=== PATIENT | male | born 1990 | race Caucasian/White ===

== ENCOUNTER → 2018-09-18 | Outpatient (CLI) | payer OTHER ==
--- NOTE | 2018-09-18 19:15 | MR ---
EXAMINATION TYPE: MR shoulder RT wo con DATE OF EXAM: 09/18/2018 COMPARISON: None HISTORY: Pain right shoulder, stiffness CONTRAST: Performed utilizing 0 mL intravenous Gadavist gadolinium contrast. Multiplanar, multiecho imaging on a 3.0 Deana magnet is performed through the shoulder. Long head of the biceps tendon is within the bicipital groove. No significant joint effusion is evide nt. Limited evaluation of the glenoid labrum. Some increased signal appears to be within the superior gle noid labrum compatible some internal derangement or some degenerative change. Communication with the articular surface is not clearly identified. This best visualized in the sagittal plane images. Ther e appear to be two small fluid-filled cysts posterior to the mid glenoid labrum. Rotator cuff tendons are evaluated. No tendon or muscle retraction is evident. No perforation is iden tified. The acromioclavicular junction is hypertrophied which can contribute to impingement syndrome. IMPRESSIONS: 1. Suspected glenoid labral degenerative changes or tear. Synovial cyst may be adjacent to the sound system installer ior glenoid 2. Rotator cuff appears intact. 3. Acromioclavicular joint hypertrophy with inferior spurring can contribute to impingement syndrome.
== END | disposition home or self-care (01) ==
LOC: RADMRIMAIN 17:09
PROVIDERS: ATTEND Orthopaedic Surgery
DX: M71.311 Other bursal cyst, right shoulder (principal); M25.811 Other specified joint disorders, right shoulder

== ENCOUNTER → 2021-11-12 | Outpatient (CLI) | payer OTHER ==
--- NOTE | 2021-11-13 05:02 | MR ---
EXAMINATION TYPE: MR shoulder RT wo con DATE OF EXAM: 11/12/2021 COMPARISON: 09/18/2018 HISTORY: Possible Rotator Cuff Tear in Right Shoulder Multiplanar multiecho imaging of the right shoulder with no contrast. The biceps tendon is intact. There is minor spurring at the AC joint. There is fluid along the supras pinatus and infraspinatus muscle bundles. There is no evidence of full thickness tear of the supraspi natus tendon. The glenohumeral joint is intact. The subscapularis tendon is intact. There is some thickening of the anterior glenoid labrum. No fract ure seen. IMPRESSION: There is some thickening of the anterior glenoid labrum consistent with a tear and scar tissue which is slightly increased compared to old exam. No evidence of any full thickness rotator cuff tear. Ther e are sharply marginated fluid collections adjacent to the scapular spine and adjacent to the suprasp inatus and infraspinatus muscle that are probably synovial cysts and essentially new compared to the old exam.
== END | disposition home or self-care (01) ==
LOC: RADMRIMAIN 19:49
PROVIDERS: ATTEND Orthopaedic Surgery
DX: M75.111 Incomplete rotator cuff tear or rupture of right shoulder, not specified as traumatic (principal)

== ENCOUNTER → 2021-11-19 | Outpatient (CLI) | payer OTHER ==
[2021-11-19 14:37] LABS: Basophils # (A) 0.04 X 10*3/uL (0.00-0.10); Basophils % (A) 0.5 %; Eosinophils # (A) 0.13 X 10*3/uL (0.04-0.35); Eosinophils % (A) 1.6 %; HCT 42.5 % (39.6-50.0); HGB 13.8 g/dL (13.0-17.0); Immature Grans, Automated 0.5 %; Lymphocytes # (A) 2.06 X 10*3/uL (0.90-5.00); Lymphocytes % (A) 25.7 %; MCH 30.5 pg (27.0-32.0); MCHC 32.5 g/dL (32.0-37.0); Monocytes # (A) 0.82 X 10*3/uL (0.20-1.00); Monocytes % (A) 10.2 %; NRBC Per 100 WBC 0 /100 WBCS (0.0-0.0); Neutrophils # (A) 4.92 X 10*3/uL (1.80-7.70); Neutrophils % (A) 61.5 %; Platelet Count 365 X 10*3/uL (140-440); RBC 4.52 X 10*6/uL (4.40-5.60); RDW 12.8 % (11.5-14.5); WBC 8.01 X 10*3/uL (4.50-10.00)
[2021-11-19 14:48] LABS: Anion Gap 8.1 mmol/L (10.00-18.00); Carbon Dioxide 26.5 mmol/L (20.0-27.5); Potassium 4.6 mmol/L (3.5-5.5)
== END | disposition home or self-care (01) ==
LOC: LABPAT 10:05
PROVIDERS: ATTEND Orthopaedic Surgery
DX: Z01.812 Encounter for preprocedural laboratory examination (principal)
CPT/HCPCS: 36415; 80051; 85025

== ENCOUNTER 2021-11-30 09:10 | Day surgery (SDC) | payer OTHER ==
[2021-11-27 16:05] VITALS: BMI 29.7
--- NOTE | 2021-11-30 08:19 | HP ---
HISTORY AND PHYSICAL CHIEF COMPLAINT: Right shoulder pain. 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 He is having with overhead use and at night. He notes he does do a lot a heavy lifting at work. He has tried medications along with injections and home exercise program without much relief. He notes daily symptoms. PAST MEDICAL HISTORY: Negative. PAST SURGICAL HISTORY: Negative. CURRENT MEDICATIONS: Ibuprofen. ALLERGIES: He denies drug allergies. FAMILY HISTORY: Negative. SOCIAL HISTORY: Significant for tobacco use along with social alcohol use. REVIEW OF SYSTEMS: A 16-point review of systems otherwise reviewed and is noncontributory. PHYSICAL EXAMINATION: VITAL SIGNS: On examination, the patient is approximately 5 feet 7, 180 pounds of mesomorphic habitus. HEENT: Nonfocal. NECK: Supple. MUSCULOSKELETAL: On examination of his right shoulder, he is tender about the anterior subacromial space. He has moderate crepitus. Active range of motion forward elevation 135 degrees, external rotation with arm at side 45 degrees, internal rotation to L4. Motor strength 4+/5 for external rotation with the arm at the side, 5-/5 for abduction. Impingement test, Neer test are positive. His distal neurovascular exam appears intact in the right upper extremity. IMAGING: MRI report, right shoulder, 11/12/2021, shows evidence of synovial cyst adjacent to the scapular spine. The rotator cuff appears to be intact. 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 RECOMMENDATIONS: I talked to the patient at length regarding his condition along with treatment options. At this point, he is quite symptomatic despite conservative measures. After thorough discussion, he opts to proceed with surgery. We will plan to proceed with arthroscopic evaluation of the right shoulder with probable subacromial decompression along with possible posterior labral debridement. We will likely perform that as an outpatient procedure. Risks and benefits were discussed at length in layman's terms. MMODL / IJN: [id number] /
[~2021-11-30 09:10] MED LIST: DEXAMETHASONE SOD PHOSPHATE 4 MG/ML 1 ML VIAL IV ONE; HYDROmorphone 0.5 MG/0.5 ML SYRINGE IVP PRN; LACTATED RINGERS 1,000 ML IV SCH; MIDAZOLAM 2 MG/2 ML VIAL IV PRN; ONDANSETRON 4 MG/2 ML VIAL IVP ONE; SCOPOLAMINE 1 MG/72 HR PATCH TRANSDERM ONE
[2021-11-30] MEDS ORDERED: MIDAZOLAM 2 MG/2 ML VIAL IVP ONE (11:09)
[2021-11-30] MEDS ORDERED: fentaNYL (PF) 50 MCG/ML 2 ML AMP IVP ONE (11:09)
[2021-11-30] MEDS ORDERED: PROPOFOL 10 MG/ML 20 ML VIAL IV ONE (11:52)
[2021-11-30] MEDS ORDERED: LIDOCAINE 2% INJ 20 MG/ML (2 ML VIAL) ONE (11:52)
[2021-11-30] MEDS ORDERED: MIDAZOLAM 2 MG/2 ML VIAL ONE (11:52)
[2021-11-30] MEDS ORDERED: SUCCINYLCHOLINE CHLORIDE 200 MG/10 ML VIAL IV ONE (11:52)
[2021-11-30] MEDS ORDERED: fentaNYL (PF) 50 MCG/ML 2 ML AMP ONE (11:52)
[2021-11-30] MEDS ORDERED: KETOROLAC 15 MG/ML 1 ML VIAL ONE (11:52)
[2021-11-30] MEDS ORDERED: GLYCOPYRROLATE 0.2 MG/ML 2 ML VIAL ONE (11:52)
[2021-11-30] MEDS ORDERED: ROPIVACAINE 5 MG/ML 30 ML VIAL ONE (11:52)
[2021-11-30] MEDS ORDERED: EPINEPHrine (PF) 1 ML in SODIUM CHLORIDE 0.9% IRRIGATIO 3,000 ML IRRIGATION ONE ×8 (11:57)
--- NOTE | 2021-11-30 12:19 | P.ANPRN ---
Procedure Note - Anesthesia - Nerve Block Performed Right Interscalene Single Time Out Performed: Yes (1108) Date of Procedure: 11/30/21 Procedure Start Time: 11:09 Procedure Stop Time: 11:15 Location of Patient: PreOp Indication: Acute Post-Operative Pain, Requested by Surgeon Specifically requested for management of pain by : Nic Brenner Sedation Type: Sedate with meaningful contact maintained Preparation: Sterile Prep Position: Supine Catheter: None Needle Types: Pajunk Needle Gauge: 21 Ultrasound used to visualize needle placement: Yes Ultrasound used to observe medication spread: Yes Injectate: 0.5% Ropivacaine (see comment for volume) (30cc) Blood Aspirated: No Pain Paresthesia on Injection Noted: No Resistance on Injection: Normal Image Stored and Saved: Yes Events: Uneventful and Well Tolerated
--- NOTE | 2021-11-30 13:00 | P.OP ---
Date of Procedure: 11/30/21 Preoperative Diagnosis: Right shoulder impingement/posterior labral tear Postoperative Diagnosis: Same in addition to a partial-thickness tear subscapularis Procedure(s) Performed: Right shoulder arthroscopic subacromial decompression/posterior labral debr idement/rotator cuff debridement Anesthesia: [facility], [facility] Surgeon: Nic Brenner Estimated Blood Loss (ml): 10 Pathology: none sent Condition: stable Disposition: PACU Indications for Procedure: The patient's a 31-year-old male presents with progressive right shoulder pain despite conservative measures. A discussion of the risks and benefits of operative intervention versus continued conservative measures was made with patient. He opted to pursue surgery. Operative risks to include infection, neurovascular injury, development of blood clots, possible postoperative stiffness and need for subsequent procedures was discussed. Informed consent was obtained. Operative Findings: As below Description of Procedure: The patient was brought to the operating room, and after induction of general anesthesia was placed in a beachchair position. A preoperative interscalene block was placed for postoperative analgesia. I examined the right shoulder. There was no gross block to passive motion or gross glenohumeral instability. The right upper extremity was prepped and draped in normal fashion. The bony outlines the acromion, distal clavicle, and coracoid process were outlined with a skin marker. The glenohumeral joint was inflated with 50 mL of saline utilizing a spinal needle from posterior approach. A posterior portal was made through a 5 mm skin incision 1 cm medial and inferior to the posterior lateral border time. A blunt trocar was used to easily into the joint. Diagnostic arthroscopy was performed. An anterior portal was made just lateral to the coracoid process entering the joint above the subscapularis tendon. There was a partial thickness tear the superior aspect the subscapularis. This was debrided back to stable base with a motorized shaver. The remaining subscapularis was stable and intact. The biceps and its anchor appear to be intact. On inspection the posterior labrum, a partial thickness tear involving the posterior labrum from the 9:00 to 11 o'clock position was noted. This was debrided with a motorized shaver. The remaining posterior labrum was stable and intact. No gross posterior instability was noted. The remaining rotator cuff appeared to be intact on the articular surface. The arthroscope was placed into the subacromial space. A lateral portal was made 2 centimeters inferior to the anterior lateral border of the acromion. There was significant bursal thickening that was debrided with a motorized shaver. The soft tissue on the undersurface of the acromion was debrided with a motorized shaver and electrocautery clearly defining the anterior medial and lateral borders as well as the distal clavicle. An anterior inferior acromioplasty was performed with a motorized debbie starting anterolateral, then extending this posteriorly, then extending this medially. I converted to a flat acromion and this was verified in the posterior and lateral viewing portals. After resection of the signif icant bursal thickening, the rotator cuff appeared to be intact on the bursal surface. The arthroscope was then removed. The portals were closed with simple 3-0 nylon sutures. A sterile dressing was applied in addition to a sling. The patient was then awoken from general anesthesia and transferred to recovery room in good condition. Blood loss was estimated at 10 mL. No complications were in curred. Sponge and needle counts were correct in the case.
[2021-11-30 13:05] VITALS: TEMP 97.2
[2021-11-30 13:32] VITALS: RESP 16
[2021-11-30 13:54] VITALS: BP 122/81; PULSE 53
== END 2021-11-30 14:15 | disposition home or self-care (01) ==
LOC: OR 09:10
PROVIDERS: ATTEND Orthopaedic Surgery
DX: M75.111 Incomplete rotator cuff tear or rupture of right shoulder, not specified as traumatic (principal); G89.18 Other acute postprocedural pain; F17.210 Nicotine dependence, cigarettes, uncomplicated
CPT/HCPCS: 64415; 76942; 29827; 29826; J2250; J0330; J1100; J0690; J2405; J0171; J3010; J2795; J1885; J2704; J2001